=== PATIENT | male | born 2000 | race Caucasian/White ===

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

== ENCOUNTER 2018-01-08 04:30 | Emergency (ER) | payer OTHER ==
[~2018-01-08] VITALS: Wt 72.6 kg
[~2018-01-08 04:30] MED LIST changes: +COLCRYS0.6 M1 PO
[2018-01-08] MEDS ORDERED: ACULAR 3ML 3 ML5 ML OPH (05:18)
[2018-01-08] MEDS ORDERED: TOBRAMYCIN 5 ML5 M2 OPH (05:18)
== END 2018-01-08 05:33 | disposition home or self-care (01) ==
LOC: ED 04:30
DX: H16.133 Photokeratitis, bilateral (principal); Z88.0 Allergy status to penicillin; Z91.018 Allergy to other foods; Z88.6 Allergy status to analgesic agent

== ENCOUNTER 2022-03-29 09:15 | Emergency (ER) | payer OTHER ==
[~2022-03-29] VITALS: Wt 72.6 kg
[~2022-03-29 09:15] MED LIST changes: +ACULAR 3ML 3 ML5 ML OPH; +TOBRAMYCIN 5 ML5 M2 OPH
== END 2022-03-29 10:00 | disposition home or self-care (01) ==
LOC: ED 09:15
DX: U07.1 COVID-19 (principal); Z88.0 Allergy status to penicillin; Z88.5 Allergy status to narcotic agent